=== PATIENT | male | born 1950 | race Caucasian/White ===

== ENCOUNTER 2017-06-17 20:34 | Emergency (ER) | payer OTHER ==
[~2017-06-17] VITALS: Ht 182.9 cm; Wt 74.0 kg
[2017-06-17] MEDS ORDERED: CLARITIN10 M2 PO (21:00)
[2017-06-17] MEDS ORDERED: PROTONIX40 M2 PO (21:01)
[2017-06-17] MEDS ORDERED: ASPIRIN LOW81 M1 PO (21:01)
[2017-06-17] MEDS ORDERED: FE TABS325 MG PO (21:02)
[2017-06-17] MEDS ORDERED: COLACE100 MG PO (21:02)
[2017-06-17] MEDS ORDERED: PERSANTINE50 MG PO (21:05)
[2017-06-17] MEDS ORDERED: OSCAL 500/1 TAB PO (21:05)
[2017-06-17] MEDS ORDERED: TAMSULOSIN0.4 MG PO (21:06)
[2017-06-17] MEDS ORDERED: ZANTAC 150 PO (21:06)
[2017-06-17 21:08] LABS: HEMATOCRIT 36.5 % (39.0-50.0); IMMATURE GRANULOCYTES 0.5 % (0.0-1.0); MEAN CELL VOLUME 98.1 fL CALC (80.0-100.0); MEAN CORPUSCULAR HGB 32.3 pG CALC (26.0-32.0); MEAN CORPUSCULAR HGB CONC 32.9 g/L CALC (32.0-36.0); NEUT# 3.96 thou/uL (1.82-7.42); RED BLOOD COUNT 3.72 mill/uL (4.70-6.10); RED CELL DISTRI WIDTH 13.6 % (11.5-15.5)
[2017-06-17 21:22] LABS: ALBUMIN 3.9 g/dL (3.2-5.0); ALKALINE PHOSPHATASE 188 u/l (38-126); ANION GAP 15 (6-22 (CALC)); BILIRUBIN, TOTAL 0.6 mg/dL (0.0-1.4); BUN 19 mg/dL (8-23); BUN/CREATININE RATIO 17 (12-20 (CALC)); CALCIUM 8.7 mg/dL (8.4-10.2); CARBON DIOXIDE 24 mmol/l (22-30); CHLORIDE 106 mmol/l (95-108); CREATININE 1.1 mg/dL (0.7-1.3); GFR > 60 ML/MIN (>=60 (CALC)); GFR FOR AFR.AMER. > 60 ML/MIN (>=60 (CALC)); GLUCOSE 99 mg/dL (82-115); POTASSIUM 4.6 mmol/l (3.5-5.1); SGOT/AST 34 u/l (19-48); SGPT/ALT 32 u/l (11-66); SODIUM 141 mmol/l (137-146)
[2017-06-17 21:27] LABS: PROTHROMBIN TIME 10.9 SECONDS (9.0-12.5)
[2017-06-17 21:32] LABS: MYOGLOBIN 61 ng/mL (0 - 121)
[2017-06-17 23:34] VITALS: BP 108/77
== END 2017-06-17 23:34 | disposition short-term general hospital (02) | DRG 282 ==
LOC: ED 20:34
PROVIDERS: Emergency Medicine
DX: I21.4 Non-ST elevation (NSTEMI) myocardial infarction (principal); I48.91 Unspecified atrial fibrillation; J44.9 Chronic obstructive pulmonary disease, unspecified; I10 Essential (primary) hypertension; E78.5 Hyperlipidemia, unspecified; K57.90 Diverticulosis of intestine, part unspecified, without perforation or abscess without bleeding; K44.9 Diaphragmatic hernia without obstruction or gangrene